=== PATIENT | female | born 2005 | race Caucasian/White ===

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

== ENCOUNTER 2025-04-05 21:52 | Outpatient (CLI) | payer OTHER ==
[~2025-04-05] VITALS: Ht 160 cm; Wt 68.6 kg
[2025-04-05 22:09] VITALS: BP 119/74
[2025-04-05] MEDS: LACTATED RINGER'S 1000 ML IV ONE (22:25)
[2025-04-05 23:16] LABS: KETONE, URINE AUTO RFX NEGATIVE (NEGATIVE); MUCUS, URINE RFX SMALL (NEGATIVE); NITRITE, URINE AUTO RFX NEGATIVE (NEGATIVE); RBC, URINE AUTO RFX 1 /HPF (0-3); SQUAM EPITHELIAL CELL UR AURFX 7 /HPF (0-6)
[2025-04-05 23:19] LABS: LEUKOCYTE ESTERASE UR AUTO RFX TRACE (NEGATIVE); WBC, URINE AUTO RFX 20 /HPF (0-3)
[2025-04-05 23:21] LABS: HEMATOCRIT 36.1 % (36.0-47.0); HEMOGLOBIN 12.1 g/dl (12.0-15.5); MEAN CORPUSCULAR HEMOGLOBIN 29.8 pg (27.0-33.0); MEAN CORPUSCULAR HGB CONC 33.5 g/dl (32.0-36.5); MEAN CORPUSCULAR VOLUME 88.9 fl (80.0-96.0); PLATELET COUNT, AUTOMATED 272 10^3/uL (150-450); RED BLOOD COUNT 4.06 10^6/uL (4.00-5.40); WHITE BLOOD COUNT 16.5 10^3/uL (4.0-10.0)
[2025-04-06] MEDS: ceFAZolin SODIUM 2 GM in DEXTROSE 5% (D5W) ADV/MINI-BAG 50 ML IV ONE (01:13)
[2025-04-06] MEDS ORDERED: CEPH250T PO (03:40)
== END 2025-04-06 04:02 | disposition home or self-care (01) ==
LOC: M LDO 21:52
PROVIDERS: ATTEND Obstetrics & Gynecology
DX: O36.8130 Decreased fetal movements, third trimester, not applicable or unspecified (principal); Z3A.36 36 weeks gestation of pregnancy; O32.1XX0 Maternal care for breech presentation, not applicable or unspecified; Z79.2 Long term (current) use of antibiotics
CPT/HCPCS: 59025; 76815; 76819; 76820; 81001; 85027; 87081; 87088; 87186; 87486; 87581; 87633; 87798; 96374; G0463; J0690

== ENCOUNTER → 2025-04-14 | Outpatient (CLI) | payer OTHER ==
[~2025-04-14] MED LIST changes: +CEPH250T PO; +COLA100C5 PO; +IBUP80TA PO
== END ==
LOC: M WHC 07:39
PROVIDERS: ATTEND Nurse Practitioner Family
DX: O36.5930 Maternal care for other known or suspected poor fetal growth, third trimester, not applicable or unspecified (principal); Z3A.33 33 weeks gestation of pregnancy

== ENCOUNTER 2025-04-21 06:18 | Inpatient (IN) | payer OTHER ==
[2025-04-21] VITALS (9 sets, daily range): BP systolic 105–127; BP diastolic 55–82; TEMP 97.3; O2SAT 95–100
[~2025-04-21] VITALS: Ht 160 cm; Wt 71.7 kg
[~2025-04-21 06:18] MED LIST changes: -COLA100C5 PO; -IBUP80TA PO
[2025-04-21] MEDS ORDERED: MORPHINE PRES-FREE INJ 10 MG/10 ML VIAL As Ordered ONE (07:14)
[2025-04-21] MEDS ORDERED: KETOROLAC 30 MG/ML 1 ML VIAL As Ordered ONE (07:14)
[2025-04-21] MEDS ORDERED: dexAMETHasone 4 MG/ML 1 ML VIAL As Ordered ONE (07:14)
[2025-04-21] MEDS ORDERED: ONDANSETRON 4MG 2ML VIAL As Ordered ONE (07:14)
[2025-04-21] MEDS ORDERED: ACETAMINOPHEN 1000MG/100ML IV BAG As Ordered ONE (07:15)
[2025-04-21] MEDS ORDERED: OXYTOCIN 30UNITS IN 0.9% NaCl 500ML IV BAG As Ordered ONE (07:15)
[2025-04-21 07:16] LABS: PLATELET COUNT, AUTOMATED 241 10^3/uL (150-450)
[2025-04-21] MEDS: LR 1,000 ML IV SCH (07:49)
[2025-04-21] MEDS: BICITRA 30 ML SOLN UDC PO ONE (07:49)
[2025-04-21] MEDS: LACTATED RINGER'S 1000 ML IV STA (07:49)
[2025-04-21] MEDS: ceFAZolin SODIUM 2 GM in DEXTROSE 5% (D5W) ADV/MINI-BAG 50 ML IV ONE (07:50)
[2025-04-21] MEDS ORDERED: PHENYLephrine 500MCG 5ML (100MCG/ML) SYRINGE As Ordered ONE (08:22)
[2025-04-21 08:31] LABS: HEPATITIS C VIRUS ABY INDEX < 0.02 INDEX (<0.8)
[2025-04-21] MEDS ORDERED: METHYLERGONOVINE MALEATE 0.2 MG TAB PO PRN (08:55)
[2025-04-21] MEDS ORDERED: PERCOCET 5MG/325MG TAB PO PRN ×2 (08:55)
[2025-04-21] MEDS ORDERED: SIMETHICONE 80MG CHEW TAB PO PRN (08:55)
[2025-04-21] MEDS ORDERED: CALCIUM CARBONATE 500 MG CHEW U/D PO PRN (08:55)
[2025-04-21] MEDS ORDERED: MOM 30 ML SUSPENSION UDC PO PRN (08:55)
[2025-04-21] MEDS ORDERED: LR 1,000 ML IV SCH (08:55)
[2025-04-21] MEDS ORDERED: ONDANSETRON 4MG 2ML VIAL IV PRN (08:55)
[2025-04-21 09:18] LABS: HIV 1&2 SCREEN NEGATIVE (NEGATIVE)
[2025-04-21] MEDS: OXYTOCIN DRIP 30 UNITS in IV 1 EA IV SCH (09:49)
[2025-04-21] MEDS ORDERED: HOME MED LIST COMPLETE! XX SCH (11:50)
[2025-04-21] MEDS: FERROUS SULFATE 325 MG TAB PO SCH (13:33)
[2025-04-21] MEDS: DOCUSATE SODIUM 100 MG CAPSULE PO SCH (13:33)
[2025-04-21] MEDS: PRENATAL VITAMINS CHEWABLE TABLET PO SCH (13:33)
[2025-04-21] MEDS: KETOROLAC 30 MG/ML 1 ML VIAL IV SCH (15:30)
[2025-04-21] MEDS ORDERED: diphenhydrAMINE 50 MG/ML VIAL IV PRN (19:10)
[2025-04-21] MEDS ORDERED: **NOTE PATIENT COMMENT** MISC XX SCH (19:10)
[2025-04-21] MEDS ORDERED: NALOXONE INJ 0.4 MG/1 ML VIAL IV PRN ×2 (19:10)
[2025-04-21] MEDS: SLF 3 ML SYR IV SCH (20:48)
[2025-04-22 01:58] VITALS: BP 117/69; O2SAT 98
[2025-04-22 05:41] VITALS: BP 106/60; O2SAT 98
[2025-04-22 07:18] LABS: PLATELET COUNT, AUTOMATED 197 10^3/uL (150-450)
[2025-04-22 10:00] VITALS: BP 116/61; O2SAT 98
[2025-04-22] MEDS ORDERED: IBUP80TA PO (10:04)
[2025-04-22] MEDS ORDERED: COLA100C5 PO (10:04)
[2025-04-22] MEDS: MEASLES,MUMPS,RUBELLA VACCINE INJ (MMR-II) SC.IMMUN ONE (13:01)
[2025-04-22] MEDS: RHOGAM 300MCG (1500IU) INJ IM SCH (13:02)
[2025-04-22] MEDS: IBUPROFEN 800 MG TAB PO SCH (13:17)
[2025-04-22 14:30] VITALS: BP 105/59; O2SAT 98
[2025-04-22 18:00] VITALS: BP 107/71; O2SAT 99
[2025-04-22 22:00] VITALS: BP 119/66; O2SAT 97
[2025-04-23 02:05] VITALS: BP 108/58; O2SAT 98
[2025-04-23 06:01] VITALS: BP 113/65; O2SAT 100
[2025-04-23] MEDS: BOOSTRIX VACCINE (TETANUS/DIPHTH/ACEL. PERTUSSIS) 0.5 ML SYR IM.IMMUN ONE (09:24)
[2025-04-23 09:55] VITALS: BP 121/73; O2SAT 99
== END 2025-04-23 11:35 | disposition home or self-care (01) | DRG 772 ==
LOC: M LDI 06:18 → M OBS 10:17
PROVIDERS: ADMIT Obstetrics & Gynecology; ATTEND Obstetrics & Gynecology
PROC: 10D00Z1 Extraction of Products of Conception, Low, Open Approach (ICD-10-PCS; principal; 2025-04-21 07:30)
DX: O32.1XX0 Maternal care for breech presentation, not applicable or unspecified (principal); O41.03X0 Oligohydramnios, third trimester, not applicable or unspecified; Z37.0 Single live birth; Z3A.38 38 weeks gestation of pregnancy; O36.5990 Maternal care for other known or suspected poor fetal growth, unspecified trimester, not applicable or unspecified